=== PATIENT | male | born 1960 | race Caucasian/White ===

== ENCOUNTER 2024-07-16 12:29 | Inpatient (IN) | payer OTHER ==
[~2024-07-16] VITALS: Ht 177.8 cm; Wt 98.7 kg
[2024-07-16] MEDS ORDERED: COZAAR100 MG PO (13:00)
[2024-07-16] MEDS ORDERED: ADULT LOW DOSE81 MG PO (13:01)
[2024-07-16] MEDS ORDERED: IMITREX25 MG PO (13:01)
[2024-07-16] MEDS ORDERED: ACETAMINOPHEN 325 MG TAB PO PRN (13:45)
[2024-07-16] MEDS ORDERED: HYDROmorphone HCL 1 MG/ML SYR IV PRN ×2 (13:45→14:15)
[2024-07-16] MEDS ORDERED: PROCHLORPERAZINE EDISYLATE 10 MG/2 ML VIAL IV PRN ×2 (13:45→14:15)
[2024-07-16] MEDS ORDERED: ondansetron HCL 4 MG/2 ML VIAL IV PRN ×2 (13:45→14:15)
[2024-07-16] MEDS ORDERED: HYDROCODONE/ACETA 5/325 TAB PO PRN (13:45)
[2024-07-16 14:01] LABS: BASOPHILS 0.9 % (0-2); EOSINOPHILS 0.8 % (0-6); HEMATOCRIT 43.9 % (35.0-50.0); HEMOGLOBIN 14.8 g/dL (12.0-18.0); LYMPHOCYTES 9.5 % (24-44); MCH 29.5 (27-36); MCHC 33.8 g/dl (30-36); MCV 87.2 fl (81-99); MONOCYTES 5.1 % (0-12); NEUTROPHILS 83.7 % (39-80); PLATELET COUNT 183 K/uL (140-440); RBC 5.03 M/ul (4.3-5.7); RDW 13.5 (10.5-15.0)
[2024-07-16 14:11] LABS: BUN/CREATININE RATIO 13.4 (6.0-28.6); CALCIUM 9.4 mg/dL (8.5-10.1); CREATININE, SERUM 0.97 mg/dL (0.70-1.30)
[2024-07-16] MEDS ORDERED: DEXTROSE 5% - LACTATED RINGERS 1,000 ML IV SCH (14:15)
[2024-07-16] MEDS ORDERED: IBUPROFEN 800 MG TAB PO PRN (14:30)
[2024-07-16] MEDS ORDERED: ACETAMINOPHEN 500 MG TAB PO PRN (14:30)
[2024-07-16] MEDS ORDERED: OXYCODONE HCL 5 MG TAB PO PRN (14:30)
--- NOTE | 2024-07-16 14:30 | NUR ---
PT AMBULATES WITH THIS RN AND PRODUCT MARKETER FROM ED TO MED SURG ROOM 112. STANDING WEIGHT OBTAINED, VS TAKEN. PT ORIENTED TO ROOM, CALL LIGHTS, REMOTE. PT IS UNCOMFORTABLE SITTING OR LYING, REMAINS PACING IN ROOM AT THIS TIME.
[2024-07-16 14:32] VITALS: BP 177/97
--- NOTE | 2024-07-16 15:10 | NUR ---
PRN PAIN MEDICATION ADMINISTERED, SEE MAR. ASSESSMENT COMPLETE. PT LUNG SOUNDS CLEAR THROUGHOUT, PT REPORTS PAIN TO L SIDE/L RIBS WITH COUGHING AND SUDDEN MOVEMENT. EDUCATED PATIENT ON INCENTIVE SPIROMETER USE, PT RETURNS DEMONSTRATION X10. DR BRITTON ARRIVES TO ASSESS PT. ALL PT QUESTIONS ANSWERED. IVF INFUSING WNL TO IV IN L AC. CPOX IN PLACE, SPO2 SUSTAINS>97% ON ROOM AIR AT THIS TIME. PT ALERT AND ORIENTED X4, CONTINUES STANDING AND PACING IN ROOM HE REPORTS IT IS UNCOMFORTABLE TO SIT OR LAY. PT ON HIS CELL PHONE COMMUNICATING WITH AND WORK. HE HAS NO COMPLAINTS OF PAIN UNTIL HE COUGHS, THEN RATES THIS PAIN A 10/10, OTHERWISE HAS NO COMPLAINTS. NO SHORTNESS OF BREATH, NO CHEST PAIN. ORIENTED TO CALL LIGHT, NO REQUESTS AT THIS TIME.
--- NOTE | 2024-07-16 16:07 | NUR ---
MED REC COMPLETE
--- NOTE | 2024-07-16 16:18 | NUR ---
HOT WATER AND TEA PROVIDED AT THIS TIME. PT REMAINS UP IN ROOM WALKING AROUND. STATES HE IS USING THE INCENTIVE SPIROMETER WITH GREATER EASE AND THE PAIN MEDICATION IS ASSISTING HIS PAIN ADEQUATELY. PTs PETE IS ON HER WAY FROM [place]. NO REQUESTS AT THIS TIME, CALL LIGHT IN REACH.
[2024-07-16 17:23] VITALS: BP 144/96
[2024-07-16 17:24] VITALS: BP 144/96
--- NOTE | 2024-07-16 17:28 | NUR ---
PRN PAIN MEDICATION ADMINISTERED. PT REPORTS PAIN REMAINS 10/10 WHEN COUGHING OR WHEN ATTEMPTING TO SIT/STAND FROM SIT, OTHERWISE PAIN IS A DULL ACHE RATED 2/10. PT DOES REPORT THAT THE PAIN HAS BECOME CONSTANT EVEN WHILE STANDING. HE HAS NO SHORTNESS OF BREATH, NO CHEST PAIN, REMAINS ON ROOM AIR AND HAS AN OXYGEN SATURATION OF 98-100%. PT IS STANDING EATING DINNER AT THIS TIME. PTs ARRIVES. SHE INTENDS TO SPEND THE NIGHT WITH PT. PT HAS NO OTHER REQUESTS, CALL LIGHT IN REACH.
[2024-07-16 17:57] VITALS: BP 129/87
--- NOTE | 2024-07-16 18:43 | NUR ---
PT FINDS COMFORTABLE POSITION IN RECLINER AND MULTIPLE PILLOWS WITH WIFEs ASSISTANCE. ICE PACK PROVIDED AT THIS TIME FOR "DULL ACHE" IN L SIDE. PT REPORTS HE HAD A COUGHING EPISODE SHORTLY AGO BUT NOW IS BREATHING EASILY, NO SHORTNESS OF BREATH OR CHEST DISCOMFORT. IN ROOM THROUGHOUT. NO REQUESTS, CALL LIGHT IN REACH.
--- NOTE | 2024-07-16 19:23 | NUR ---
REPORT RECEIVED FROM DAY SHIFT RN. PATIENT RESTING IN CHAIR. DENIES NEEDS AT THIS TIME. CALL LIGHT IN REACH.
[2024-07-16 20:07] VITALS: BP 140/89
[2024-07-16 20:09] VITALS: BP 140/89
--- NOTE | 2024-07-16 20:15 | NUR ---
PATIENT RESTING IN CHAIR. VS AND I&Os OBTAINED AND RECORDED. ASSESSMENT COMPLETE. PATIENT DENIES FURTHER NEEDS AT THIS TIME. CALL LIGHT IN REACH.
[2024-07-16] MEDS ORDERED: DOCUSATE SODIUM 100 MG CAP PO SCH (21:00)
--- NOTE | 2024-07-16 23:06 | NUR ---
CALL LIGHT ANSWERED. PATIENT REQUESTING PAIN MEDICATION FOR 4/10 RIB PAIN. PRN PAIN MEDICATION ADNMINISTERED. NO FURTHER NEEDS. CALL LIGHT IN REACH.
[2024-07-17] VITALS (11 sets, daily range): BP systolic 120–155; BP diastolic 72–92
--- NOTE | 2024-07-17 00:48 | NUR ---
ROUNDING ON PATIENT. PATIENT RESTING IN BED WATCHING TV. VS AND I&Os OBTAINED AND RECORDED. PRN PAIN MEDICATION ADMINISTERED FOR "BACK ACHE". PATIENT HAS NO FURTHER NEEDS AT THIS TIME. CALL LIGHT IN REACH.
--- NOTE | 2024-07-17 02:35 | NUR ---
PATIENT RESTING IN BED ON BACK WITH EYES CLOSED. RESPIRATIONS EVEN AND UNLABORED. CALL LIGHT IN REACH.
[2024-07-17 05:18] LABS: BASOPHILS 0.4 % (0-2); EOSINOPHILS 4.5 % (0-6); HEMATOCRIT 39.3 % (35.0-50.0); HEMOGLOBIN 13.7 g/dL (12.0-18.0); LYMPHOCYTES 24.7 % (24-44); MCH 29.9 (27-36); MCHC 34.7 g/dl (30-36); MONOCYTES 12.5 % (0-12); NEUTROPHILS 57.9 % (39-80); PLATELET COUNT 156 K/uL (140-440); RBC 4.57 M/ul (4.3-5.7); RDW 13.7 (10.5-15.0)
[2024-07-17 05:31] LABS: BUN/CREATININE RATIO 9.67 (6.0-28.6); CREATININE, SERUM 0.93 mg/dL (0.70-1.30)
[2024-07-17 05:34] LABS: MAGNESIUM 2.1 mg/dL (1.8-2.4); PHOSPHORUS, INORGANIC 3.5 mg/dL (2.5-4.9)
--- NOTE | 2024-07-17 06:36 | CONS ---
[facility] [address], [place] [address] Signed DATE OF CONSULTATION: 07/16/2024 CHIEF COMPLAINT: Left rib pain. HISTORY OF PRESENT ILLNESS: Harvey is a 64-year-old gentleman, who works at our local [employer]. 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 He was caring some and various other things in his arm. He slipped on the snow around 10:30 this morning and fell on his left elbow and his left ribcage. He said it knocked the breath out of him. He did not lose consciousness. It took a while to get his breath back. He tried to tough it out and realized that was not going to work. He came to the emergency room for evaluation. In the emergency room, he had no shortness of breath or increased work of breathing. He did have pain just lateral to the elbow and his posterior ribcage whenever he took a cough or deep breath. His chest x-ray shows the left posterolateral 7th rib fracture minimally displaced along with a very small left pneumothorax. I was asked to admit him as a general surgeon on-call. In the meantime, he has come down to his room and he is doing fine. For some reason, he thinks he did not receive any pain medication in the ER. We gave him some here what we were talking with him. PAST MEDICAL HISTORY: Includes hypertension and tachycardia. PAST SURGICAL HISTORY: Includes cardiac ablation. SOCIAL HISTORY: He does not smoke. He quit drinking several years ago. He still chews about 1/3rd a can of snuff a day. He told me his Jackie continues to smoke. Her phone number is [phone]. 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 FAMILY HISTORY: Dad had prostate cancer and is still alive. REVIEW OF SYSTEMS: He had 10 systems reviewed and he told me about his heart. ALLERGIES: None. MEDICATIONS: 1. Losartan 100 mg p.o. at bedtime. Electronically Signed By: MERLINE WILSON MD 07/17/24 0636 PATIENT NAME: HARVEY MENDEZ JR CONSULTATION DATE OF : 60 REPORT #: [id number] PHYSICIAN: MERLINE WILSON MD PCP: OTHER PCP REPORT IS CONFIDENTIAL AND NOT TO BE RELEASED WITHOUT AUTHORIZATION [facility] [address] [place] [id number] Signed 2. Imitrex 25 mg p.r.n. for headaches. 3. Aspirin 81 mg p.o. daily. PHYSICAL EXAMINATION: VITAL SIGNS: His blood pressure is 141/79, heart rate is 75, respiratory rate is 16, temperature is 98.0. He is 100% on room air. He is 5 feet 10 inches tall. He weighs 100 kg with a body mass index of 31. GENERAL: Harvey is a 64-year-old gentleman who is standing at his bedside. A nurse is in the room with us. He is in no acute distress. He has no shortness of breath or increased work of breathing. He is able to talk in full sentences. He said it only hurts really when he has to cough. LUNGS: Clear to auscultation bilaterally. He has good air movement on both sides. HEART: Regular rate and rhythm without murmur. ABDOMEN: Mildly protuberant. I can see the area just lateral to the elbow, it is about 3 cm wide, maybe 4 or 5 cm in length where it is raised. It is not really bruised at this point. LABORATORY DATA: His white blood cell count is 11.3, hemoglobin 14, and platelets 183. Electrolytes are unremarkable. Chest x-ray is reviewed along with the report. I can see the minimally displaced left posterolateral 7th rib fracture, but it is very difficult, it is impossible to see the small pneumothorax on our small computer screen. ASSESSMENT AND PLAN: Harvey is a 64-year-old gentleman, who fell earlier this morning while at work on the snow. He has suffered a contusion on the lateral side of his elbow and then a left posterior rib fracture that is minimally displaced. This would be rib #7. He has just a small pneumothorax according to the radiologist. It is difficult for myself and the ER physician to visualize. We decided we would admit him and keep him overnight. Let him have clear liquids. We will repeat the x-ray in the morning. If he does well, he will be able to go home. I have also instructed him on the incentive spirometer. He is up to about 1250 currently without any pain medications. We have discussed his rib fracture and pneumothorax in detail. We have discussed the expected timeline for his rib to heal. He has expressed understanding and agrees with the above plan. Merline Wilson MD ALB/MODL /[id number] Electronically Signed By: MERLINE WILSON MD 07/17/24 0636 PATIENT NAME: HARVEY MENDEZ JR CONSULTATION DATE OF : 60 REPORT #: [id number] PHYSICIAN: MERLINE WILSON MD PCP: OTHER PCP REPORT IS CONFIDENTIAL AND NOT TO BE RELEASED WITHOUT AUTHORIZATION [facility] [address], [place] [address] Signed cc: Merline Wilson MD Copies: MERLINE WILSON MD ~ Electronically Signed By: MERLINE WILSON MD 07/17/24 0636 PATIENT NAME: HARVEY MENDEZ JR CONSULTATION DATE OF : 60 REPORT #: [id number] PHYSICIAN: MERLINE WILSON MD PCP: OTHER PCP REPORT IS CONFIDENTIAL AND NOT TO BE RELEASED WITHOUT AUTHORIZATION
--- NOTE | 2024-07-17 07:16 | NUR ---
REPORT RECEIVED FROM GENEVIEVE WETZEL. PT AWAKE AND ALERT, STANDING IN HIS ROOM. HE IS REQUESTING PAIN MEDICATION. PRESENT IN ROOM. NO OTHER REQUESTS, CALL LIGHT IN REACH.
[2024-07-17] MEDS ORDERED: OXYCODONE HCL 5 MG TAB PO SCH (08:00)
--- NOTE | 2024-07-17 08:10 | NUR ---
MEDICATION ADMINISTERED, SEE MAR. ASSESSMENT COMPLETE. PT RESTING IN RECLINER WITH ON COUCH. PT IS EAGER TO GO HOME TODAY AND HOPING HE WILL BE ABLE TO. 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 LUNG SOUNDS CLEAR IN BUL AND RLL, DIMINISHED ONLY IN THE BASE OF THE LLL. PT REPORTS NO SOB AND REPORTS HE HAS BEEN USING THE INCENTIVE SPIROMETER THROUGHOUT THE NIGHT. IV TO L AC FLUSHES WNL. PT COMPLAINS OF PAIN TO THE L SIDE AND RIBS RATING IT A 2/10 WHEN RESTING AND A 7/10 WITH MOVEMENT. HE IS HOPEFUL FOR THE NEW PAIN MEDICATION REGIMENT. NO OTHER REQUESTS AT THIS TIME, CALL LIGHT IN REACH.
[2024-07-17] MEDS ORDERED: IBUPROFEN 800 MG TAB PO SCH (09:00)
[2024-07-17] MEDS ORDERED: ACETAMINOPHEN 500 MG TAB PO SCH (09:00)
[2024-07-17] MEDS ORDERED: PANTOPRAZOLE SODIUM 40 MG/10 ML VIAL IV SCH (09:00)
[2024-07-17] MEDS ORDERED: POLYETHYLENE GLYCOL 3350 1 PACKET PO SCH (09:00)
--- NOTE | 2024-07-17 10:57 | NUR ---
PT REPORTS PAIN IS NOW "AMAZING". EVEN WITH MOVEMENT AND COUGHING HE SAYS HIS PAIN IS A 2/10. ICE WATER AND HOT WATER PROVIDED FOR TEA, PT IS PACING IN HIS ROOM WELL AMBULATING THROUGH THE HALLS INDEPENDENTLY. NO COMPLAINTS AT THIS TIME, CALL LIGHT IN REACH.
--- NOTE | 2024-07-17 11:47 | NUR ---
PT AND PTs UPDATED ON PLAN OF CARE, ALL QUESTIONS ANSWERED. PT IS IN GOOD SPIRITS, JUST WAITING FOR NEW CXR AND ANXIOUS TO GO HOME. BOTH CAME TO NURSEs STATION, WALKING INDEPENDENTLY. NO REQUESTS AT THIS TIME.
--- NOTE | 2024-07-17 12:59 | NUR ---
PT IS NON-STOP AMBULATING INDEPENDENTLY THROUGH HALLS AND INTO AND OUT OF BEDROOM. CONTINUES TO REPORT WELL CONTROLLED PAIN, WISHES TO GO HOME.
--- NOTE | 2024-07-17 13:46 | NUR ---
IMAGING ARRIVES TO TAKE CXR. PT SITS UPRIGHT IN BED WITHOUT ASSISTANCE, VERBALIZES HOW MUCH EASIER THIS IS TODAY AND HOW MUCH BETTER HE FEELS. IMAGING LEAVES, PT REQUESTING SOMETHING ACID REFLUX. MINT TEA PROVIDED AT THIS TIME. NO OTHER REQUESTS, CALL LIGHT IN REACH.
[2024-07-17] MEDS ORDERED: CALCIUM CARBONATE 500 MG CHEW PO PRN (14:30)
--- NOTE | 2024-07-17 14:33 | NUR ---
DR BRITTON UPDATED ON RESULTED CXR. DR BRITTON GIVES VERBAL ORDER FOR REPEAT CXR IN AM (07/18/24) WELL TUMS FOR PT REPORTED ACID REFLUX. ORDERS PLACED.
--- NOTE | 2024-07-17 15:10 | NUR ---
SCHEDULED PAIN MEDICATIONS ADMINSITERED, SEE AUG. PT REPORTS L SIDE/RIB PAIN IS CURRENTLY A 6/10 AND HE COULD FEEL THAT HE WAS READY FOR MEDICATIONS AGAIN. UPDATED PT AND PTs ON PLAN OF CARE AND PRIOR DISCUSSION WITH DR BRITTON. ALL QUESTIONS ANSWERED, THERAPEUTIC COMMUNICATION PROVIDED TO . PT EDUCATION PROVIDED RE: PNEUMOTHORAX. PT AND PTs VERBALIZE UNDERSTANDING AT THIS TIME. PT UP IN RECLINER FULLY DRESSED, NO REQUESTS AT THIS TIME. CALL LIGHT IN REACH. CHEST TUBE CART MOVED TO OUTSIDE OF PTs ROOM AT THIS TIME PRECAUTION.
--- NOTE | 2024-07-17 16:21 | NUR ---
PT IN RECLINER SPEAKING ON CELL PHONE AT THIS TIME. GIVES THUMBS UP THROUGH DOOR. CALL LIGHT IN REACH.
--- NOTE | 2024-07-17 18:46 | NUR ---
PT CONTINUES RESTING IN RECLINER. DINNER TRAY AT CHAIRSIDE. GIVES THIS RN THUMBS UP THROUGH DOORS, NO REQUESTS, CALL LIGHT IN REACH.
--- NOTE | 2024-07-17 19:25 | NUR ---
REPORT RECEIVED FROM DAY SHIFT RN. PT SITTING IN RECLINER ALERT AND ORIENTED. DENIES NEEDS. WHITE BOARD UPDATED. CALL LIGHT IN REACH.
--- NOTE | 2024-07-17 19:27 | NUR ---
PATIENT WALKED 10 LAPS TODAY AROUND MED SURG.
--- NOTE | 2024-07-17 20:55 | NUR ---
EVENING ASSESSMENT COMPLETE. SCHEDULED MEDS ADMIN PER EMAR. PT REPORTS LEFT RIB PAIN 06/18. SCHEDULED PAIN MEDS ADMIN. PT DENIES NAUSEA OR SOB. LUNGS DIMINISHED ON LEFT SIDE. SpO2 100% ON RA. PT UTILIZING IS APPROPRIATELY. IN ROOM. PT DENIES QUESTIONS OR CONCERNS. CALL LIGHT IN REACH.
--- NOTE | 2024-07-17 21:17 | NUR ---
PATIENT CALLED TO STATE HE WAS READY FOR BED AND NEEDED HIS CPOX MONITOR PUT ON. THIS HOTBED LEVER OPERATOR PLACED CPOX ON PATIENT . PATIENT IN BED CALL LIGHT IN REACH. FAMILY AT BEDSIDE.
--- NOTE | 2024-07-17 23:49 | NUR ---
PT RESTING IN BED WITH EYES CLOSED. HOB ELEVATED. SpO2 96% ON RA. HR 60'S. RESTING IN RECLINER AT BEDSIDE.
[2024-07-18] VITALS (9 sets, daily range): BP systolic 125–152; BP diastolic 81–99
--- NOTE | 2024-07-18 02:23 | NUR ---
PT AWAKE IN BED. PT REPORTS LEFT SIDE PAIN 2/10 AT REST. SCHEDULED PAIN MEDS ADMIN PER EMAR. ASSESSMENT UNCHANGED. SpO2 98% ON RA. HR 60'S. RESPIRATIONS EVEN. HOB ELEVATED. PT DENIES FURTHER NEEDS. CALL LIGHT IN REACH.
--- NOTE | 2024-07-18 04:08 | NUR ---
PT RESTING IN BED EYES CLOSED. RESPIRATIONS EVEN. SpO2 95% ON RA. HR 60'S.
--- NOTE | 2024-07-18 05:51 | NUR ---
PT UP TO BR INDEPENDENTLY. BACK TO BED, RENATA FAIR. PT REPORTS INCREASED PAIN WITH ACTIVITY. DENIES PRN FOR PAIN WHEN OFFERED. ICE PACK PROVIDED FOR LEFT RIB PAIN. PT DENIES SOB. SpO2 99% ON RA. HR 60'S. NO FURTHER NEEDS. CALL LIGHT IN REACH.
--- NOTE | 2024-07-18 07:11 | NUR ---
REPORT RECEIVED FROM GENEVIEVE MCCULLOUGH. PT RESTING IN BED WITH HOB ELEVATED. REPORTS HE ACTUALLY "SLEPT HARD" LAST NIGHT BUT NOW HE FEELS VERY PAINFUL IN HIS L SIDE AND REPORTS HE CAN'T GET OUT OF THE BED. PRN PAIN MEDICATINO ADMINISTERED AT THIS TIME, CALL LIGHT IN ROOM, IN ROOM.
--- NOTE | 2024-07-18 08:06 | NUR ---
PATIENT IN BED AT THIS TIME. BUTT SAWYER WENT INTO PATIENTS ROOM FOR HOURLY ROUNDS. CALL LIGHT WITHIN REACH, NO FURTHER NEEDS AT THIS TIME.
--- NOTE | 2024-07-18 08:16 | NUR ---
MEDICATION ADMINISTERED, SEE AUG. ASSESSMENT COMPLETE. PT ABLE TO GET OUT OF BED AFTER PAIN MEDICATION ADMINISTRATION, CURRENTLY UP AND PACING IN ROOM. LUNG SOUNDS CLEAR IN RUL AND RLL, DIMINISHED IN BOTH LLL AND CHRISTINA. PT REPORTS NO SHORTNESS OF BREATH OR CHEST DISCOMFORT. SPO2 SUSTAINS>97% ON ROOM AIR, CPOX REMOVED AT THIS TIME TO ALLOW PT MOVEMENT. PT HAS NO OTHER COMPLAINTS OF DISCOMFORT OR PAIN AT THIS TIME. PTs PRESENT IN ROOM THROUGHOUT. NO REQUESTS, CALL LIGHT IN REACH.
--- NOTE | 2024-07-18 08:23 | NUR ---
MD PRESENT IN ROOM TO ASSESS PT, ALL QUESTIONS ANSWERED.
[2024-07-18] MEDS ORDERED: SENNOSIDES/DOCUSATE 1 EA TAB PO SCH (09:00)
[2024-07-18] MEDS ORDERED: POLYETHYLENE GLYCOL 3350 1 PACKET PO SCH ×2 (09:00)
[2024-07-18] MEDS ORDERED: DOCUSATE SODIUM 100 MG CAP PO SCH (09:00)
--- NOTE | 2024-07-18 09:45 | NUR ---
PT PROVIDED WITH BOWEL MEDICATIONS ALONG WITH PRUNE JUICE FOR NO BOWEL MOVEMENT X2 DAYS. PT CONSUMES ALL. PT AND PT HAVE CONTINUED QUESTIONS REGARDING UPDATES TO PLAN OF CARE, ALL QUESTIONS ANSWERED. PT ENCOURAGED TO CONTINUE AMBULATING TODAY AND ALLOWING REST PERIODS NEEDED BUT TO CALL SHOULD HE NEED ANY ASSISTANCE. NO OTHER REQUESTS, CALL LIGHT IN REACH.
--- NOTE | 2024-07-18 10:22 | NUR ---
PATIENT IN BED AT THIS TIME. IT INFRASTRUCTURE MANAGER CHARTED VITALS AND I&O'S. CALL LIGHT WTIHIN REACH, NO DURTHER NEEDS AT THIS TIME.
--- NOTE | 2024-07-18 11:26 | NUR ---
PT SHOWERING WITH STANDING BY IN ROOM TO OFFER ASSISTANCE. PT OBSERVED TO BE SHOWERING INDEPENDENTLY. NO NEEDS.
[2024-07-18] MEDS ORDERED: LACTATED RINGER'S 1,000 ML IV SCH (12:00)
--- NOTE | 2024-07-18 12:28 | NUR ---
PT IV IN L AC IS LEAKING FOLLOWING SHOWER. THIS RN ATTEMPTED DRESSING CHANGE AND TIGHTENING PORTS, IV CONTINUES LEAKING FROM AROUND CATHETER SITE. IV REMOVED AT THIS TIME. PT INDEPENDENTLY MOVING AROUND IN ROOM, NO COMPLAINTS OF PAIN OR DISCOMFORT. NO SOB. REPORTING HE WILL PROBABLY HAVE HIS BRING HIM [employer] FOR DINNER. NO REQUESTS, CALL LIGHT IN REACH.
--- NOTE | 2024-07-18 13:48 | NUR ---
PT UP IN ROOM DRINKING MINT TEA FOR HIS HEARTBURN. PT REPORTS HE HAS NOT HAD A BOWEL MOVEMENT YET BUT HIS "STOMACH IS REALLY RUMBLING". PT HAS BEEN AMBULATING FOR MOST OF THE DAY. LUNG SOUNDS ARE CLEAR IN RUL AND RLL, CLEAR TO CHRISTINA AND DIMINISHED IN LLL. PT REPORTS NO SOB, NO CHEST DISCOMFORT. PAIN IS CONTROLLED, HE RATES IT A 1/10 BUT STATES HE CAN FEEL IT "CREEPING BACK UP". ICE PACK SUPPLIED FOR L SIDE PAIN. NO OTHER REQUESTS, CALL LIGHT IN REACH.
--- NOTE | 2024-07-18 17:15 | NUR ---
PT RESTING IN RECLINER, HAS RETURNED. PT IS EATING SUPPER AT THIS TIME, NO COMPLAINTS OF PAIN OR DISCOMFORT. NO SOB. REPORTS HIS PAIN IS A 1/10 AT THIS TIME AND IS VERY CONTENT. NO REQUESTS, CALL LIGHT IN REACH.
--- NOTE | 2024-07-18 18:15 | NUR ---
VITALS I/0 COMPLETE.
--- NOTE | 2024-07-18 19:21 | NUR ---
REPORT RECEIVED FROM DAY SHIFT RN. PT SITTING IN RECLINER ALERT AND ORIENTED. DENIES NEEDS. WHITE BOARD UPDATED. CALL LIGHT IN REACH.
--- NOTE | 2024-07-18 20:26 | NUR ---
EVENING ASSESSMENT COMPLETE. SCHEDULED MEDS/PAIN MEDS ADMIN PER EMAR. PT DENIES PAIN AT REST. SpO2 97% ON RA. LUNGS CLEAR/DIM THROUGHOUT. PT DENIES SOB. PT UTILIZING IS APPROPRIATELY. PT DENIES QUESTIONS OR CONCERNS. CALL LIGHT IN REACH.
--- NOTE | 2024-07-18 22:15 | NUR ---
PT BACK TO BED. CPOX PLACED FOR NOC. SpO2 HIGH 90'S. PT DENIES SOB. ICE PACK PROVIDED TO LEFT SIDE. NO FURTHER NEEDS.
--- NOTE | 2024-07-19 01:49 | NUR ---
PT AWAKE IN BED. PT DENIES PAIN AT REST. REPORTS WITH ACTIVITY PAIN 4/10. SCHEDULED PAIN MEDS ADMIN PER EMAR WITH A SIP OF WATER. IVF INFUSING PER ORDER. PT REMAINS NPO. ORAL CARE SUPPLIES PROVIDED. PT DENIES SOB. NO FURTHER NEEDS. CALL LIGHT IN REACH.
--- NOTE | 2024-07-19 04:09 | NUR ---
PT RESTING IN BED WITH EYES CLOSED. RESPIRATIONS EVEN. SpO2 MID 90'S ON RA. HR 60'S. CALL LIGHT IN REACH.
--- NOTE | 2024-07-19 06:27 | NUR ---
PT RESTING WITH EYES CLOSED. AWAKENS EASILY. VS AND I&O OBTAINED. NO C/O PAIN AT THIS TIME. MD AT BEDSIDE. NO NEEDS AT THIS TIME. CALL LIGHT IN REACH.
[2024-07-19 06:28] VITALS: BP 137/83
[2024-07-19 06:29] VITALS: BP 137/83
--- NOTE | 2024-07-19 07:28 | NUR ---
PT ALERT AND INTERACTIVE AT TIME OF SHIFT REPORT. IS PRESENT IN THE ROOM. DR BRITTON IN TO SEE PT EARLIER, HE ANTICIPATES GOING HOME TODAY. PT DENIES NEEDS AT THIS TIME, UP INDEPENDANTLY IN THE ROOM
[2024-07-19] MEDS ORDERED: OXYCODONE HCL10 MG PO (07:52)
[2024-07-19] MEDS ORDERED: TYLENOL EXTRA500 MG PO (07:53)
--- NOTE | 2024-07-19 09:16 | NUR ---
PT UP AMBULATING THE ROOM TALKING ON THE PHONE. REFUSES OXY DOSE SCHEDULED STATING HE PLANS TO DRIVE HIS CAR HOME. BREAKFAST WELL TOLERATED. PT REPEATS HE FEELS SO MUCH BETTER THAN YESTERDAY AND IS ABLE TO MOVE WELL ONCE HE IS UP AGREES HE IS READY FOR DC
--- NOTE | 2024-07-19 09:47 | NUR ---
INTO SEE PATIENT. PERSONAL HEALTH INFORMATION REVIEWED. PATIENT LIVES IN A HOME WITH IN OLD FIELDS. WILL TAKE PATIENT HOME AT DISCHARGE. PATIENT HAS ONE STEP IN THE HOME AND DENIES DIFFCULTY DOING IT. DOES NOT HAVE ANY DME AT HOME. PATIENT DENIES DIFFCULTY PAYING UTILITIES OR OBTAINING FOOD. PATIENT CONCERED WITH DRIVING TO APPOINTMENTS OVER HERE. LET KNOW TO CALL [facility] AND SEE IF [facility] CAN HELP PROVIDE CARE. CALLED [facility] FOR [facility] CLAIM NUMBER. UNABLE TO OBTAIN AT THIS TIME BECAUSE THERE IS NO CLAIM NUMBER AT THIS TIME DUE TO INJURY BEING FRIDAY AFTERNOON. DENIES ANY OTHER CM NEEDS AT THIS TIME.
--- NOTE | 2024-07-19 10:04 | NUR ---
UR CLINICAL REVIEW: MCG-MEET OBS STATUS FOR PNEUMO POST FALL SAIF OBS 07/18/24 @ 0926 EMAIL SENT TO UPDATE REG NO AUTH REQUIRED FOR SAIF CLAIM DISCHARGE TO HOME TODAY 07/20/24
[2024-07-19 10:11] VITALS: BP 141/97
[2024-07-19 10:14] VITALS: BP 137/83
--- NOTE | 2024-07-20 09:43 | DS ---
[facility] [address], [place] [address] Signed ADMISSION DATE: 07/16/2024 DISCHARGE DATE: 07/19/2024 FINAL DIAGNOSES: 1. Posterior lateral left 7th rib fracture. 2. Small left pneumothorax. 3. Left elbow contusion. PROCEDURE: Multiple chest x-rays. 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 He happens to live about an hour away in [place], [place]. 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 He also has a niece who is a registered nurse. He was carrying some totes the day that it snowed and was going down the sidewalk and slipped and fell onto his left elbow and posterior rib. He came to the emergency room for evaluation. In the emergency room, he had a contusion on the left elbow, but he fractured the left 7th rib posteriorly and laterally. He had just a tiny pneumothorax. I have been asked to admit him as a general surgeon on-call. HOSPITAL COURSE: Harvey was admitted as above. We were able to put him on scheduled oxycodone along with scheduled Tylenol and ibuprofen and got his pain under control. He is very compliant and he was getting up to 2500 mL on the incentive spirometer, which is the maximum allowed. He is ambulating in the hallways. After a few days now, his chest x-ray enlarged slightly, but it has been stable and it is still small. We had multiple discussions whether or not to proceed with a chest tube. Harvey really wanted to avoid that if at all possible. At this point, he is doing quite well. He is a very dependable patient and has a very dependable spouse. He would like to go home and then come back and see me in about a week with a followup chest x-ray. He understands he is going to reserve about 1% of this per day. It will take a couple of weeks to get it completely . During that time, he is not to go to work. He is going to probably need close to a month off work. DISCHARGE PLANS AND MEDICATIONS: Harvey will be discharged to home with a prescription for oxycodone immediate release 10 mg tablets one tablet p.o. q.8 hours p.r.n. for severe pain. We will dispense 15 tablets with no refills. Of course, he can use Tylenol, ibuprofen or Aleve as needed for [id number] pain. That can be purchased [id number]. He is going to hold Electronically Signed By: MERLINE BRITTON MD 07/20/24 0943 PATIENT NAME: HARVEY MENDEZ JR DISCHARGE SUMMARY DATE OF : 60 REPORT #: [id number] PHYSICIAN: MERLINE BRITTON MD PCP: OTHER PCP REPORT IS CONFIDENTIAL AND NOT TO BE RELEASED WITHOUT AUTHORIZATION [address] [address] Signed the aspirin for one month. He can resume his other medications at home including the losartan for his blood pressure. He is not to do any heavy pushing, pulling, lifting over 10 pounds. He is certainly welcome to perform his activities of daily living including walking up and down stairs and showering and bathing as usual. He is not to drive on narcotics. He can follow a regular diet. He can take anything [id number] for constipation. He has been through that discussion multiple times here in the hospital. I would have him back in my office in a week. He will come down and have his chest x-ray late in the morning and see me early in the afternoon and that way the x-ray will be available for review. He has expressed understanding along with his . If there are any concerns, they can present to [facility] in [place] or give my office a call. MD DAVION Bell/JEANNAL /[id number] cc: MD Yoli Bell NP Copies: MERLINE BRITTON MD ~ Electronically Signed By: MERLINE BRITTON MD 07/20/24 0943 PATIENT NAME: HARVEY MENDEZ DISCHARGE SUMMARY DATE OF : 60 REPORT #: [id number] PHYSICIAN: MERLINE BRITTON MD PCP: OTHER PCP REPORT IS CONFIDENTIAL AND NOT TO BE RELEASED WITHOUT AUTHORIZATION
== END 2024-07-19 10:00 | disposition home or self-care (01) | DRG 200 ==
LOC: ED 12:29 → MS 12:33
PROVIDERS: Emergency Medicine; ADMIT Colon & Rectal Surgery; ATTEND Colon & Rectal Surgery
DX: S27.0XXA Traumatic pneumothorax, initial encounter (principal); S22.32XA Fracture of one rib, left side, initial encounter for closed fracture; S50.02XA Contusion of left elbow, initial encounter; I10 Essential (primary) hypertension; Z79.82 Long term (current) use of aspirin; W00.0XXA Fall on same level due to ice and snow, initial encounter
CPT/HCPCS: 36415; 71045; 71101; 80048; 83735; 84100; 85025; 94762; 96374; A9270; G0378; J1171; J7121